=== PATIENT | female | born 1985 | race Hispanic/Latino ===

== ENCOUNTER 2017-06-12 17:19 | Emergency (ER) | payer MEDICAID, OTHER ==
[2017-06-12 18:12] LABS: BASOPHILS % (AUTO) 0.4 % (0.0-5.0); HEMATOCRIT 40.1 % (36-48); LYMPHOCYTES % (AUTO) 25.4 % (21.0-51.0); MEAN CORPUSCULAR HEMOGLOBIN 31.5 pg (27.0-33.0); MONOCYTES % (AUTO) 5.8 % (3.0-13.0); NEUTROPHILS % (AUTO) 67.4 % (40.0-77.0); PLATELET COUNT (AUTO) 309 K/uL (130-400); RED BLOOD CELL COUNT(AUTO) 4.46 MIL/uL (4.00-5.50); RED CELL DISTRIBUTION WIDTH 12.4 % (11.0-15.5)
[2017-06-12 18:14] LABS: APPEARANCE,URINE Clear (CLEAR); BILIRUBIN,URINE Negative (NEGATIVE); COLOR,URINE Yellow (YELLOW); GLUCOSE, URINE (UA) Negative (NEGATIVE); KETONES,URINE Negative (NEGATIVE); LEUKOCYTE ESTERASE ,URINE Small (NEGATIVE); NITRATE,URINE Negative (NEGATIVE); OCCULT BLOOD,URINE Negative (NEGATIVE); PROTEIN,URINE Negative (NEGATIVE)
[2017-06-12 18:24] LABS: CREATININE 0.8 mg/dL (0.5-1.5); POTASSIUM 3.4 mmol/L (3.5-5.1)
[2017-06-12 18:32] LABS: BACTERIA,URINE Rare /HPF (None Seen); RBC,URINE None Seen /HPF (0-1); SQUAMOUS EPITHELIAL CELL,UR 0-2 /LPF (0-2); WBC,URINE 0-1 /HPF (0-1)
[2017-06-12 18:50] LABS: BILIRUBIN,TOTAL 0.2 mg/dL (0.2-1.0); TOTAL PROTEIN, SERUM 7.7 g/dL (6.0-8.3)
== END 2017-06-12 19:14 | disposition home or self-care (01) ==
LOC: EDH 17:19
DX: O26.891 Other specified pregnancy related conditions, first trimester (principal); S39.012A Strain of muscle, fascia and tendon of lower back, initial encounter; Z3A.01 Less than 8 weeks gestation of pregnancy; X58.XXXA Exposure to other specified factors, initial encounter; Y93.89 Activity, other specified; Y92.89 Other specified places as the place of occurrence of the external cause; Y99.8 Other external cause status
CPT/HCPCS: 36415; 76801; 80053; 81001; 84702; 85025

== ENCOUNTER 2017-08-19 17:08 | Emergency (ER) | payer MEDICAID | END 2017-08-19 17:43 | disposition home or self-care (01) | LOC: EDH 17:08 | DX: O99.512 Diseases of the respiratory system complicating pregnancy, second trimester (principal); J02.9 Acute pharyngitis, unspecified; Z3A.15 15 weeks gestation of pregnancy | CPT/HCPCS: 99281 ==

== ENCOUNTER 2023-06-23 05:42 | Emergency (ER) | payer BC, MEDICAID, OTHER ==
[~2023-06-23] VITALS: Ht 147.3 cm; Wt 63.5 kg
[2023-06-23 06:09] LABS: APPEARANCE,URINE CLOUDY (CLEAR); BILIRUBIN,URINE NEGATIVE (NEGATIVE); COLOR,URINE LIGHT-YELLOW (YELLOW); GLUCOSE, URINE (UA) NEGATIVE (NEGATIVE); KETONES,URINE NEGATIVE (NEGATIVE); LEUKOCYTE ESTERASE ,URINE 250 Leu/uL (NEGATIVE); NITRATE,URINE NEGATIVE (NEGATIVE); OCCULT BLOOD,URINE NEGATIVE (NEGATIVE); PH,URINE 6.5 (5.0-8.0); PROTEIN,URINE NEGATIVE (NEGATIVE); UROBILINOGEN,URINE 0.2 mg/dL (0.2-1.0)
[2023-06-23 06:12] LABS: ADD UA MICROSCOPIC YES
[2023-06-23 06:14] LABS: MUCUS,URINE RARE LPF (None Seen); RBC,URINE 0-1 /HPF (0-1); SQUAMOUS EPITHELIAL CELL,UR MANY /HPF (0-2)
[2023-06-23 06:26] LABS: BACTERIA,URINE Few /HPF (None Seen)
[2023-06-23] MEDS: LACTATED RINGERS 1000ML 1,000 ML IV ONE (06:26)
[2023-06-23 06:29] LABS: BASOPHILS # (AUTO) 0.03 K/uL (0.00-0.20); BASOPHILS % (AUTO) 0.6 % (0.0-5.0); EOSINOPHILS # (AUTO) 0.08 K/uL (0.00-0.70); EOSINOPHILS % (AUTO) 1.5 % (0.0-8.0); HEMATOCRIT 37.5 % (36-48); IMMATURE GRANULOCYTE ABSOLUTE 0.03 K/uL (0-1); LYMPHOCYTES # (AUTO) 1.7 K/uL (1.0-4.8); LYMPHOCYTES % (AUTO) 31.8 % (21.0-51.0); MEAN CORPUSCULAR HEMOGLOBIN 30.6 pg (27.0-33.0); MEAN CORPUSCULAR HGB CONC 34.1 g/dL (32.0-36.0); MEAN CORPUSCULAR VOLUME 89.7 fL (79-99); MONOCYTES # (AUTO) 0.4 K/uL (0.1-1.0); MONOCYTES % (AUTO) 6.8 % (3.0-13.0); NEUTROPHILS # (AUTO) 3.1 K/uL (1.8-7.7); NEUTROPHILS % (AUTO) 58.7 % (40.0-77.0); PLATELET COUNT (AUTO) 268 K/uL (130-400); RED BLOOD CELL COUNT(AUTO) 4.18 MIL/uL (4.00-5.50); RED CELL DISTRIBUTION WIDTH 12.4 % (11.0-15.5); WHITE BLOOD COUNT (AUTO) 5.3 K/uL (4.8-10.8)
[2023-06-23 06:44] LABS: ALBUMIN 3.7 g/dL (3.5-5.0); BILIRUBIN,TOTAL 0.4 mg/dL (0.2-1.0); CREATININE 0.6 mg/dL (0.5-1.5); POTASSIUM 3.7 mmol/L (3.5-5.1)
[2023-06-23] MEDS ORDERED: IOHEXOL 350 MG/ML 100ML INFUS..BTL IV ONE (06:47)
[2023-06-23] MEDS: MORPHINE 2 MG SYG IVP ONE (08:39)
[2023-06-23] MEDS ORDERED: CEPH500B PO (10:54)
[2023-06-23] MEDS: PHENAZOPYRIDINE HCL 200 MG TABLET PO ONE (10:54)
[2023-06-23] MEDS ORDERED: ONDA4TAB10 PO (10:54)
[2023-06-23] MEDS ORDERED: PHEN-847 PO (10:54)
[2023-06-23] MEDS: CEFTRIAXONE 2GM VIAL IVPB ONE (10:54)
[2023-06-23] MEDS: FAMOTIDINE 20MG VIAL IV ONE (10:56)
[2023-06-23] MEDS: METOCLOPRAMIDE 10 MG/2 ML VIAL IVP ONE (10:56)
[2023-06-23] MEDS: KETOROLAC 30MG VIAL (30MG/ML) IVP ONE (10:57)
[2023-06-23] MEDS: 0.9%NACL 1000ML 1,000 ML IV ONE (10:57)
[2023-06-23 11:32] VITALS: BP 107/72; PULSE 84; RESP 18; O2SAT 100
== END 2023-06-23 11:50 | disposition home or self-care (01) ==
LOC: EDH 05:42
DX: N39.0 Urinary tract infection, site not specified (principal)
CPT/HCPCS: 99284; 74177; 96365; 96361; 96375; 80053; 83690; 85025; 87088; 81001; 81025; 36415; J7120; J3490; J2270; J7030; J0696 ×2; J1885; J2765; Q9967